=== PATIENT | male | born 1965 | race Caucasian/White ===

== ENCOUNTER 2016-10-07 05:34 | Inpatient (IN) | payer OTHER ==
[~2016-10-07] VITALS: Ht 172.7 cm; Wt 62.9 kg
[2016-10-07] VITALS (10 sets, daily range): BP systolic 124–169; BP diastolic 72–106; PULSE 78–217; TEMP 97.2–99.3
[2016-10-07] MEDS ORDERED: ULTRAM 50MG TAB50 MG PO (05:49)
[2016-10-07] MEDS ORDERED: FLEXERIL 1010 MG/TAB PO (05:49)
[2016-10-07] MEDS ORDERED: TYLENOL W/COD1 UDTAB PO (05:49)
[2016-10-07 06:09] LABS: BASO % 0.7 % (0.0-2.0); EOS # 0.1 (0.0-0.7); EOS % 0.9 % (0-4.0); GRAN % 73.6 % (42.2-75.2); HEMATOCRIT 39.7 % (42.0-52.0); HEMOGLOBIN 14.4 g/dl (13.5-18.0); LYMPH # 0.8 (1.2-3.4); LYMPH % 15.3 % (20.0-51.0); MEAN CELL VOLUME 99 fl (80.0-100.0); MEAN CORPUSCULAR HEMOGLOBIN 36 pg (27.0-31.0); MEAN CORPUSCULAR HGB CONC 36 g/dl (33.0-37.0); MEAN PLATELET VOLUME 9.5 fl (7.4-10.4); MONO # 0.5 (0.1-0.6); MONO % 9.1 % (1.7-9.3); PLATELET COUNT 171 K/mm3 (130-400); REDCELL DISTRIBUTION WIDTH-CV 11.7 % (11.5-14.5); WHITE BLOOD COUNT 5.4 K/mm3 (4.8-10.8)
[2016-10-07 06:17] LABS: PH 5 (5-8); SQUAMOUS EPITHELIAL None Seen /hpf; URINE APPEARANCE Cloudy; URINE BACTERIA None Seen /hpf; URINE BILIRUBIN Negative (NEGATIVE); URINE BLOOD 1+ (NEGATIVE); URINE COLOR Yellow; URINE GLUCOSE 3+ (NEGATIVE); URINE KETONE Trace (NEGATIVE); URINE UROBILINOGEN Negative (NEGATIVE)
[2016-10-07 06:24] LABS: ADJUSTED CALCIUM 8.4 mg/dL (8.4-10.2); ALANINE AMINOTRANSFERASE 36 U/L (21-72); ALBUMIN 4.5 gm/dL (3.5-5.0); ALKALINE PHOSPHATASE 36 U/L (50-136); ANION GAP 11 mmol/L (7-16); BILIRUBIN,TOTAL 0.8 mg/dL (0.0-1.0); BLOOD UREA NITROGEN 10 mg/dL (9-20); CALCIUM 8.8 mg/dL (8.4-10.2); CARBON DIOXIDE 21 mmol/L (22-30); CHLORIDE 101 mmol/L (98-107); GLUCOSE 171 mg/dL (74-106); POTASSIUM 3.8 mmol/L (3.4-5.0); SODIUM 133 mmol/L (137-145)
[2016-10-07 06:27] LABS: ACETAMINOPHEN < 10 ug/mL (10-30); SALICYLATE < 1.0 mg/dL
[2016-10-07 06:35] LABS: TROPONIN-I 0.013 ng/mL (0.000-0.034)
[2016-10-07 06:41] LABS: AMPHETAMINE URINE NEGATIVE; BARBITURATES URINE NEGATIVE; BENZODIAZEPINES URINE NEGATIVE; BUPRENORPHINE URINE NEGATIVE; METHADONE URINE NEGATIVE; OPIATES URINE POSITIVE; OXYCODONE URINE NEGATIVE; PHENCYCLIDINE URINE NEGATIVE; PROPOXYPHENE URINE NEGATIVE; THC CANNABINOIDS URINE NEGATIVE
[2016-10-07 12:49] LABS: PARTIAL THROMBOPLASTIN TIME 28.2 SECONDS (26.0-37.0)
[2016-10-08] VITALS (9 sets, daily range): BP systolic 112–145; BP diastolic 70–92; PULSE 58–91; TEMP 97.3–98.8
[2016-10-08 07:48] LABS: ADJUSTED CALCIUM 8.6 mg/dL (8.4-10.2); ALBUMIN 3.3 gm/dL (3.5-5.0); BILIRUBIN,TOTAL 0.6 mg/dL (0.0-1.0); CREATININE, serum 0.66 mg/dL (0.66-1.25); POTASSIUM 3.8 mmol/L (3.4-5.0); TOTAL PROTEIN 5.4 gm/dL (6.4-8.2)
[2016-10-09 02:20] VITALS: BP 113/70; PULSE 113; TEMP 99
[2016-10-09 03:43] VITALS: BP 122/72; PULSE 71; TEMP 99
[2016-10-09 06:23] VITALS: BP 111/71; PULSE 60; TEMP 98.9
[2016-10-09 07:58] VITALS: BP 125/79; PULSE 76; TEMP 97.5
[2016-10-09 09:50] VITALS: BP 160/91; PULSE 62; TEMP 98.2
[2016-10-09] MEDS ORDERED: VALIUM 10MG10 MG/TAB PO (09:57)
== END 2016-10-09 11:37 | disposition home or self-care (01) | DRG 897 ==
LOC: COL.ER 05:34 → MEDICAL 07:31
PROVIDERS: Emergency Medicine; Physician Assistant
DX: F10.231 Alcohol dependence with withdrawal delirium (principal); R73.9 Hyperglycemia, unspecified; M25.551 Pain in right hip; M54.31 Sciatica, right side; F17.210 Nicotine dependence, cigarettes, uncomplicated; Y90.0 Blood alcohol level of less than 20 mg/100 ml
CPT/HCPCS: OP; 99222-AI; 99231-AI; 99239; J1650; J3360; J3411; J7030